=== PATIENT | female | born 1980 | race Two or more races ===

== ENCOUNTER 2017-03-10 02:41 | Emergency (ER) | payer BC, MEDICAID ==
[2017-03-10 03:24] LABS: % BASOPHILS 2.9 % (0.0-2.0); % EOSINOPHILS 2.3 % (0.0-5.0); % LYMPHOCYTES 35.1 % (20.0-50.0); % MONOCYTES 2.9 % (2.0-10.0); % NEUTROPHILS 56.8 % (40.0-80.0); HEMATOCRIT 40.7 % (41.0-60); HEMOGLOBIN 13.9 gm/dL (12-16); MEAN CELL VOLUME 93.4 fl (81-100); MEAN CORPUSCULAR HEMOGLOBIN 31.8 pg (27.0-31.0); MEAN PLATELET VOLUME 8.6 fl; NEUTROPHILE ABSOLUTE 6.9 Th/cmm (1.8-8.0); PLATELET COUNT 284 Th/cmm (150-400); RED BLOOD COUNT 4.36 Mil/cmm (3.80-5.10)
[2017-03-10 03:24] LABS: URINE BILIRUBIN NEGATIVE (NEGATIVE); URINE BLOOD SMALL (NEGATIVE); URINE GLUCOSE (UA) NEGATIVE (NEGATIVE); URINE KETONE NEGATIVE (NEGATIVE); URINE PROTEIN NEGATIVE (NEGATIVE); URINE UROBILINOGEN 0.2 E.U./dL (0.2 - 1.0)
[2017-03-10 03:26] LABS: URINE BACTERIA FEW /hpf (NONE SEEN); URINE COLOR YELLOW; URINE EPITHELIAL CELLS FEW /lpf (FEW); URINE RBC 0-2 /hpf (0-5); URINE WBC 0-2 /hpf (0-5)
[2017-03-10 03:28] LABS: WHITE BLOOD COUNT 12.4 Th/cmm (4.8-10.8)
[2017-03-10 03:34] LABS: AMYLASE SERUM 24 U/L (29-103); LIPASE 46 U/L (11-82)
[2017-03-10 03:35] LABS: ANION GAP 8.2 (7.0-16.0); BUN - UREA NITROGEN 15 mg/dL (7-25); BUN/CREATININE RATIO 18.8; CALCIUM SERUM 8.8 mg/dL (8.6-10.3); CARBON DIOXIDE 24.4 mEq/L (21.0-31.0); CHLORIDE 105 mEq/L (98-107); CREATININE - SERUM 0.8 mg/dL (0.6-1.2); GLUCOSE 104 mg/dL (70-105); POTASSIUM SERUM 3.6 mEq/L (3.5-5.1); SODIUM SERUM 134 mEq/L (136-145)
[2017-03-10] MEDS ORDERED: Piperacillin Sodium/Tazobact 3.375 gm Vial IV ONE (03:59)
--- NOTE | 2017-03-10 08:04 | Diagnostic Imaging Report ---
Portable chest x-ray Time: 0 348 History: Pain Allowing for portable technique the heart size is normal. No focal pulmonary parenchymal processes. No hilar or mediastinal abnormalities. Impression: No acute abnormalities.
--- NOTE | 2017-03-12 14:44 | ER Physician Documentation ---
DATE OF SERVICE: 03/10/2017 PATIENT IDENTIFICATION: A 36-year-old female patient, date of 1980, full code patient. No allergies. Body surface area is 1.91 square meter, height is 1.65 meters, weight 83.91 kilograms. CHIEF COMPLAINT: The patient came to the Emergency Room complaining of pain around 11 o'clock on 03/09/2017 and the pain radiated to the back and this is the first time she gets that pain and in the past also she had once the similar kind of pain and she had some nausea sensation, she took 4 tablets of Advil. She smokes 5 cigarettes a day. She denies drinking any alcoholic substances. She denies any apparent liver disease or apparent gallbladder disease. The patient has no history of any jaundice, had 2 bowel movements today. She ate some different kind of food around 11 o' clock which she had eaten in the past also. HISTORY OF PRESENT ILLNESS: The patient apparently had the same upper findings or the history that I outlined to you and the patient had no lung, liver or gallbladder disease. The patient denies any pancreatitis in the past. Denies any history of drinking alcohol in the past. PAST MEDICAL HISTORY: Essentially benign and negative. PERSONAL HISTORY: She is , has 3 children. She does not work. FAMILY HISTORY: Benign and negative. REVIEW OF SYSTEMS: Essentially has no history of pneumonia, TB, pulmonary embolism, COPD, emphysema, bronchitis. Cardiac agudelo; no history of any chest pain. No history of any rheumatic fever, valvular heart disease, pericarditis. No history of any palpitations. Central nervous system agudelo; no history of TIA, stroke, encephalitis, meningitis ____ no apparent complaints. Gastrointestinal agudelo; the patient has epigastric discomfort for which she took 8 ibuprofen tablets and I am not sure whether the patient has been taking ibuprofen; most likely in the past that she had so many ibuprofen and along with that perhaps she may have ingested alcohol in the past with high doses of cigarette smoking, can contribute to this kind of pain along with pancreatitis need to be ruled out. Gallbladder is another possibility that the patient can have cholecystitis pain, but later this was to rule out pancreatitis, then we will get gallbladder scan to see if there is any gallbladder disease present in the patient. Endocrine agudelo; no diabetes mellitus, no alcohol ____; bones and joints, no apparent complaints. Genitourinary; no burning, frequency, dysuria. Urine is essentially clear. Urine examination was done rightfully, ____ earlier it was found to be within normal limits. PHYSICAL EXAMINATION: GENERAL: The patient appears to be awake, alert, oriented, not in any acute cardiorespiratory distress. VITAL SIGNS: Showed that the temperature was 98.1, when she came here temperature was 98.6, oral temperature; pulse of 76; blood pressure 120/85; respiratory rate of 16; oxygen saturation 100%, and pain level scale was 8. CHEST: Reveals trachea to be central. Fairly good air entry in both lungs without any rales, rhonchi, or ____ breathing. ABDOMEN: Soft. Epigastric tenderness is noted with minimal radiation into the posterior area. No evidence of any definite Marshall sign present, but there is definite tenderness also noted in the right upper quadrant area suggesting the possibility of gallbladder disease could be present in her. White count is slightly elevated ____ suggesting that there might be some occult infection either in the form of pancreatitis or cholecystitis or probability that should be kept in mind. No history of ascites is present, no history of any portal hypertension. Liver and spleen not enlarged. No free fluid in the abdominal cavity. ____ systems within normal limits. EKG is within normal limits. CLINICAL IMPRESSION: The patient presented with abdominal pain of 3 hours' duration associated with two large bowel movements and followed by taking 800 mg of ibuprofen tablets. The differential diagnoses as follows: 1. Pancreatitis. 2. Possibility of gallbladder disease, acute cholecystitis pain is a possibility. The other is whether the patient has been heavily smoking, alcohol ingestion in the past and having some gastroesophageal reflux and gastritis, ____ is possible food poisoning. She is taking some different kind of [place] food today around 11 o'clock giving isolated diarrhea and some nauseous sensation. ____ comes out to be normal, then we will get ultrasound of the gallbladder to be done to see if there is anything present in the gallbladder. In the meantime, we will give the patient some Protonix injection to be given to the patient; hydration will be given to the patient and some mild Tylenol at the present moment ____ care of treatment will be given to the patient. The urine is essentially clear, platelet count is normal, white count is normal, hemoglobin and hematocrit are normal. test is negative. Electrolytes are being with the present moment. Further dictation of lab results and our treatment profile will be given to the patient. Since the patient has abdominal pain, we will give one shot of antibiotic also to cover for if there is any gallbladder infection, Zosyn would be the best to give at the present moment. Under the current circumstances, showed gallbladder be a pathology. We will start the treatment at the present moment. If there is any food poisoning, it should go away by itself. EKG is within normal limits as I mentioned earlier. JOB# [id number]
--- NOTE | 2017-03-12 14:44 | ER Physician Documentation ---
DATE OF SERVICE: ADDENDUM LABORATORY DATA: Showed white count to be slightly elevated 12.4 and electrolytes came back showing sodium to be 134, potassium 3.6, chloride 105, BUN is ____, creatinine is ____, calcium is 8.8 within normal limits. Amylase is 24 and lipase is 66, all within normal level. Lactic acid is within normal limits. The patient's troponin is within normal limits, ____ cardiac agudelo the patient has any problem. CLINICAL IMPRESSION: The patient most probably had either acute gastritis or either food poisoning giving rise to nausea sensation and two episodes of bowel movements, in light of that one antibiotic Zosyn has been given to the patient and most likely this is a viral illness, norovirus or other virus and this should go away by itself and the patient may also be having gastritis, gastroesophageal reflux disease type symptoms. Protonix has been given to take one a day. The patient's diarrhea and things should get controlled by itself. She should not eat too much for a few days ____ get back to normal. She has been given, at the present moment, Protonix, sucralfate and ____. All other cultures are negative. Chest x-ray has been ordered, but I do not expect anything wrong to help in to that. The patient should follow up with her physician to see if the patient has any gallbladder disease, so the patient might need a gallbladder study to be done as an outpatient. If the patient develops or food poisoning symptoms continue, then her physician can order the patient some antibiotic coverage in the form of ____ in the Septra-DS 1 twice a day or if it is significant enough then one can need Flagyl 500 three times a day along with some Cipro 500 twice a day for 5 days and that should cover the symptoms, but most likely this should wear off within 24-48 hours with the use of Protonix, but Protonix should be continued for about a month or so and smoking should be discontinued by the patient and followup of the patient should be done by her physician. JOB# [id number]
== END 2017-03-10 04:27 | disposition home or self-care (01) ==
LOC: ER 02:41
DX: K29.00 Acute gastritis without bleeding (principal)
CPT/HCPCS: 99285; 96365; 96375; 93005; 71010; 84484; 36415; 83605; 85025; 81001; 82150; 81025; 83690; 80048; 87040; C9113; J2543

== ENCOUNTER 2017-10-22 23:28 | Emergency (ER) | payer MEDICAID ==
[2017-10-23] MEDS ORDERED: Bacitracin pkt 1 gm Pkt TP ONE (00:17)
[2017-10-23] MEDS ORDERED: Bacitracin pkt 1 gm Pkt TP STA (00:23)
--- NOTE | 2017-10-23 00:24 | ED Physician Chart ---
ED Chief Complaint/HPI - Patient Information Date Seen:: 10/23/17 Time Seen:: 00:01 Chief Complaint:: Left hand laceration History of Present Illness:: 36 yo female had a left hand laceration when she was washing dishes 2 hours ago. There was small amount of bleeding before it stopped by pressure compressing. Allergies:: Allergies Allergy/AdvReac Type Severity Reaction Status Date / Time No Known Allergies Allergy Verified 10/22/17 23:38 Vitals:: Vital Signs - 8 hr 10/22/17 23:30 Temp 97.3 F HR 74 RR 18 BP 125/80 O2 Sat % 99 ED Review of Systems - Review of Systems General/Constitutional: No fever Skin: Skin lesions Head: No headache Eyes: No pain ENT: No nasal drainage Neck: No neck pain Cardio Vascular: No chest pain Pulmonary: No SOB GI: No nausea, No vomiting Musculoskeletal: No bone or joint pain Neurological: No focal symptoms ED Past Medical History - Past Medical History Past Medical History: No significant medical hx Social History: Non Smoker, No Alcohol, No Drug Use Surgical History: None Family Medical History - Family Member Mother History Unknown: Yes Ethnicity: Living Status: Still Living Hx Family Diabetes: Yes ED Physical Exam - Physical Examination General/Constitutional: Awake Head: Atraumatic Eyes: PERRL Other Skin comments:: "L" shape laceration 2cm, 1cm and 0.3cm deep on the left 5th finger, lateral to the MCP joint. ENMT: Nasal exam nl Neck: No nuchal rigidity Respiratory: No Wheeze/Rhonchi/Rales Cardio Vascular: RRR, No murmur, gallop, rubs, NL S1 S2 GI: No tenderness/rebounding/guarding Extremities: normal strength in all extremities Neuro/Psych: No focal deficits ED Assessment - Assessment General Assessment: Left hand laceration Assessment/Comments:: Laceration repair Tdap Keflex 500mg PO D/c home F/u PCP for suture removal in 7-10 days Location:: Left 5th finger, lateral to MCP joint Laceration Type:: Simple Wound Length: 3 cm Prep/Irrigation:: NS, hydrogen peroxide, betadine Comments: 1% lidocaine was used to achieve local anesthesia. Subsequently, two horizontal mattress sutures and one simple interrupted suture was placed with 4.0 Prolene. Bacitracin was topically applied ED Septic Shock - . Is Septic Shock (SBP<90, OR Lactate>4 mmol\\L) present?: No - <6hrs of presentation: Vital Signs: Vital Signs - 8 hr 10/22/17 23:30 Temp 97.3 F HR 74 RR 18 BP 125/80 O2 Sat % 99 ED Reassessment (Disposition) - Reassessment Reassessment Condition:: Improved - Patient Disposition Discharge/Transfer:: Home ED Discharge Plan - Patient Disposition Admit/Discharge/Transfer: PT DISCHARGED HOME Condition at Disposition: Improved Instructions: Laceration Care, Adult
== END 2017-10-23 00:35 | disposition home or self-care (01) ==
LOC: ER 23:28
DX: S61.412A Laceration without foreign body of left hand, initial encounter (principal); X58.XXXA Exposure to other specified factors, initial encounter; Y93.89 Activity, other specified; Y92.89 Other specified places as the place of occurrence of the external cause; Y99.8 Other external cause status
CPT/HCPCS: 12002; Z7502; Z7610

== ENCOUNTER 2017-12-15 20:03 | Emergency (ER) | payer MEDICAID ==
[2017-12-15 21:06] LABS: % BASOPHILS 0.8 % (0.0-2.0); % EOSINOPHILS 1.4 % (0.0-5.0); % LYMPHOCYTES 33.6 % (20.0-50.0); % MONOCYTES 3.5 % (2.0-10.0); % NEUTROPHILS 60.7 % (40.0-80.0); BASOPHILE ABSOLUTE 0.1 Th/cumm (0-0.2); EOSINOPHILE ABSOLUTE 0.1 Th/cmm (0.1-0.4); HEMATOCRIT 41.8 % (41.0-60); HEMOGLOBIN 14.1 gm/dL (12-16); LYMPHOCYTE ABSOLUTE 3.2 Th/cmm (1.5-3.0); MEAN CELL VOLUME 93.4 fl (81-100); MEAN CORPUSCULAR HEMOGLOBIN 31.4 pg (27.0-31.0); MEAN CORPUSCULAR HGB CONC 33.6 pg (28.0-36.0); MEAN PLATELET VOLUME 7.9 fl; MONOCYTE ABSOLUTE 0.3 Th/cmm (0.3-1.0); NEUTROPHILE ABSOLUTE 5.8 Th/cmm (1.8-8.0); PLATELET COUNT 293 Th/cmm (150-400); RED BLOOD COUNT 4.47 Mil/cmm (3.80-5.10); RED CELL DISTRIBUTION WIDTH 12.1 % (11.5-20.0); WHITE BLOOD COUNT 9.5 Th/cmm (4.8-10.8)
[2017-12-15 21:06] LABS: URINE MICROSCOPIC INDICATED? YES; URINE SOURCE CLEAN C
[2017-12-15 21:10] LABS: URINE BILIRUBIN NEGATIVE (NEGATIVE); URINE BLOOD NEGATIVE (NEGATIVE); URINE GLUCOSE (UA) NEGATIVE (NEGATIVE); URINE KETONE NEGATIVE (NEGATIVE); URINE LEUKOCYTE ESTERASE NEGATIVE (NEGATIVE); URINE NITRATE NEGATIVE (NEGATIVE); URINE PH 8.5 (4.6 - 8.0); URINE PROTEIN TRACE mg/dL (NEGATIVE); URINE UROBILINOGEN 0.2 E.U./dL (0.2 - 1.0)
--- NOTE | 2017-12-15 21:10 | ED Physician Chart ---
ED Chief Complaint/HPI - Patient Information Date Seen:: 12/15/17 Time Seen:: 20:20 Chief Complaint:: NUMBNESS ARMS FEET History of Present Illness:: 37 YR OLD FEMALE WITH HX OF CHILDHOOD POLIO WITH PROBLEMS LT FOOT DROP DECRESED MOVEMENT RT SHOULDER WITH SOME NUMBNESS FEET ARMS NO FEVER OR COUGH NO HEADACHE OR DIZZINESS Allergies:: Allergies Allergy/AdvReac Type Severity Reaction Status Date / Time No Known Allergies Allergy Verified 10/22/17 23:38 Vitals:: Vital Signs - 8 hr 12/15/17 20:20 Temp 98.6 F HR 82 RR 18 O2 Sat % 99 ED Review of Systems - Review of Systems General/Constitutional: No fever, No chills, No weight loss, No weakness, No diaphoresis, No edema, No loss of appetite Skin: No skin lesions, No rash, No bruising Head: No headache, No light-headedness Eyes: No loss of vision, No pain, No diplopia ENT: No earache, No nasal drainage, No sore throat, No tinnitus Neck: No neck pain, No swelling, No thyromegaly, No stiffness, No mass noted Cardio Vascular: No chest pain, No palpitations, No PND, No orthopnea, No edema Pulmonary: No SOB, No cough, No sputum, No wheezing GI: No nausea, No vomiting, No diarrhea, No pain, No melena, No hematochezia, No constipation, No hematemesis G/U: No dysuria, No frequency, No hematuria Musculoskeletal: Muscle pain, Other (POLIO WEAKNESS) Endocrine: No polyuria, No polydipsia Psychiatric: No prior psych history, No depression, No anxiety, No suicidal ideation Hematopoietic: No bruising, No lymphadenopathy Allergic/Immuno: No urticaria, No angioedema Neurological: No syncope, No focal symptoms, No weakness, No paresthesia, No headache, No seizure, No dizziness, No confusion, No vertigo ED Past Medical History - Past Medical History Past Medical History: Other (CHILDHOOD POLIO) Family Medical History - Family Member Mother History Unknown: Yes Ethnicity: Living Status: Still Living Hx Family Diabetes: Yes ED Assessment - Assessment General Assessment: WEAKNESS NUMBNESS HX POLIO ED Septic Shock - . Is Septic Shock (SBP<90, OR Lactate>4 mmol\L) present?: No - <6hrs of presentation: Vital Signs: Vital Signs - 8 hr 12/15/17 20:20 Temp 98.6 F HR 82 RR 18 O2 Sat % 99 ED Reassessment (Disposition) - Reassessment Reassessment Condition:: Unchanged - Diagnosis Diagnosis:: WEAKNESS NUMBNESS CHILDHOOD POLIO - Patient Disposition Discharge/Transfer:: Home Condition at Disposition:: Stable
[2017-12-15 21:13] LABS: URINE CLARITY CLEAR (CLEAR); URINE COLOR YELLOW
[2017-12-15 21:15] LABS: URINE BACTERIA FEW /hpf (NONE SEEN); URINE EPITHELIAL CELLS MODERATE /lpf (FEW); URINE WBC 0-2 /hpf (0-5)
[2017-12-15 21:24] LABS: ALB/GLOB RATIO 1.7 (1.0-1.8); ALBUMIN 4.3 gm/dL (3.7-5.3); ALKALINE PHOSPHATASE 46 U/L (34-104); ANION GAP 10.8 (7.0-16.0); BILIRUBIN,TOTAL 0.3 mg/dL (0.3-1.0); BUN - UREA NITROGEN 10 mg/dL (7-25); CALCIUM SERUM 9.2 mg/dL (8.6-10.3); CARBON DIOXIDE 24.7 mEq/L (21.0-31.0); CHLORIDE 107 mEq/L (98-107); CREATININE - SERUM 0.6 mg/dL (0.6-1.2); GFR AFRICAN-AMERICAN > 60.0 ml/min (>90); GFR NON AFRICAN-AMERICAN > 60.0 ml/min; GLUCOSE 92 mg/dL (70-105); POTASSIUM SERUM 3.5 mEq/L (3.5-5.1); SGOT 15 U/L (13-39); SGPT/ALT 19 U/L (7-52); SODIUM SERUM 139 mEq/L (136-145); TOTAL PROTEIN,SERUM 6.8 gm/dL (6.0-8.3)
--- NOTE | 2017-12-16 09:03 | Diagnostic Imaging Report ---
Chest x-ray single view History: Shortness of breath The heart size is normal. No focal pulmonary parenchymal processes. No hilar or mediastinal abnormalities. Impression: No acute abnormalities
== END 2017-12-15 21:20 | disposition home or self-care (01) ==
LOC: ER 20:03
DX: R20.0 Anesthesia of skin (principal); R53.1 Weakness; Z86.12 Personal history of poliomyelitis
CPT/HCPCS: 36415-UA; 71045-TC; 80053-TC; 81001-TC; 85025-TC

== ENCOUNTER 2018-04-16 00:17 | Emergency (ER) | payer MEDICAID ==
[2018-04-16] MEDS ORDERED: Pantoprazole 40 mg EC Tab PO ONE (00:40)
[2018-04-16 01:00] LABS: URINE SOURCE MIDSTREAM
[2018-04-16 01:04] LABS: URINE BILIRUBIN NEGATIVE (NEGATIVE); URINE BLOOD MODERATE (NEGATIVE); URINE GLUCOSE (UA) NEGATIVE (NEGATIVE); URINE KETONE NEGATIVE (NEGATIVE); URINE LEUKOCYTE ESTERASE NEGATIVE (NEGATIVE); URINE MICROSCOPIC INDICATED? YES; URINE NITRATE NEGATIVE (NEGATIVE); URINE PROTEIN NEGATIVE (NEGATIVE); URINE UROBILINOGEN 0.2 E.U./dL (0.2 - 1.0)
[2018-04-16 01:06] LABS: % BASOPHILS 0.4 % (0.0-2.0); % EOSINOPHILS 2.4 % (0.0-5.0); % LYMPHOCYTES 29.5 % (20.0-50.0); % MONOCYTES 4.6 % (2.0-10.0); % NEUTROPHILS 63.1 % (40.0-80.0); BASOPHILE ABSOLUTE 0.1 Th/cumm (0-0.2); EOSINOPHILE ABSOLUTE 0.3 Th/cmm (0.1-0.4); HEMATOCRIT 38.9 % (41.0-60); HEMOGLOBIN 13.2 gm/dL (12-16); LYMPHOCYTE ABSOLUTE 3.8 Th/cmm (1.5-3.0); MEAN CELL VOLUME 92.9 fl (81-100); MEAN CORPUSCULAR HEMOGLOBIN 31.4 pg (27.0-31.0); MEAN CORPUSCULAR HGB CONC 33.8 pg (28.0-36.0); MONOCYTE ABSOLUTE 0.6 Th/cmm (0.3-1.0); PLATELET COUNT 329 Th/cmm (150-400); RED BLOOD COUNT 4.19 Mil/cmm (3.80-5.10); RED CELL DISTRIBUTION WIDTH 12.2 % (11.5-20.0); WHITE BLOOD COUNT 12.8 Th/cmm (4.8-10.8)
[2018-04-16 01:09] LABS: URINE CLARITY CLEAR (CLEAR); URINE COLOR YELLOW
[2018-04-16 01:15] LABS: ALB/GLOB RATIO 1.5 (1.0-1.8); ALBUMIN 3.9 gm/dL (3.7-5.3); ALKALINE PHOSPHATASE 59 U/L (34-104); ANION GAP 11.5 (7.0-16.0); BILIRUBIN,TOTAL 0.2 mg/dL (0.3-1.0); BUN - UREA NITROGEN 16 mg/dL (7-25); CARBON DIOXIDE 22.4 mEq/L (21.0-31.0); CHLORIDE 106 mEq/L (98-107); CREATININE - SERUM 0.7 mg/dL (0.6-1.2); GFR AFRICAN-AMERICAN > 60.0 ml/min (>90); GFR NON AFRICAN-AMERICAN > 60.0 ml/min; GLUCOSE 134 mg/dL (70-105); LIPASE 30 U/L (11-82); POTASSIUM SERUM 3.9 mEq/L (3.5-5.1); SGOT 17 U/L (13-39); SGPT/ALT 21 U/L (7-52); SODIUM SERUM 136 mEq/L (136-145); TOTAL PROTEIN,SERUM 6.5 gm/dL (6.0-8.3)
[2018-04-16 01:16] LABS: URINE BACTERIA FEW /hpf (NONE SEEN); URINE EPITHELIAL CELLS FEW /lpf (FEW); URINE RBC 0-2 /hpf (0-5); URINE WBC 0-2 /hpf (0-5)
[2018-04-16 01:28] LABS: INR 0.87 (0.5-1.4); PROTHROMBIN TIME (TEST) 9.2 SECONDS (9.5-11.5)
[2018-04-16] MEDS ORDERED: Morphine Sulfate 2 mg/mL 1mL Syr ONE (01:49)
[2018-04-16] MEDS ORDERED: Piperacillin Sodium/Tazobact 3.375 gm Vial IV ONE (02:16)
--- NOTE | 2018-04-16 04:58 | ED Physician Chart ---
ED Chief Complaint/HPI - Patient Information Date Seen:: 04/16/18 Time Seen:: 04:58 Chief Complaint:: Abdominal pain History of Present Illness:: 37 yo female began to have epigastric pain radiating to the back about 3 hours prior. Patient denied nausea or vomiting. Patient denied history of gallstone or kidney stone. Allergies:: Allergies Allergy/AdvReac Type Severity Reaction Status Date / Time No Known Allergies Allergy Verified 10/22/17 23:38 Vitals:: Vital Signs - 8 hr 04/16/18 04/16/18 04/16/18 00:18 01:56 02:46 Temp 97.5 F HR 77 65 65 RR 18 18 16 BP 151/89 118/70 117/66 O2 Sat % 98 98 100 ED Review of Systems - Review of Systems General/Constitutional: No fever Skin: No rash Head: No headache Eyes: No pain ENT: No nasal drainage Neck: No neck pain Cardio Vascular: No chest pain Pulmonary: No SOB GI: No nausea, No vomiting, Pain Musculoskeletal: No bone or joint pain Psychiatric: No prior psych history Neurological: No focal symptoms ED Past Medical History - Past Medical History Past Medical History: No significant medical hx Social History: Smoker, No Alcohol, No Drug Use Surgical History: Family Medical History - Family Member Mother History Unknown: Yes Ethnicity: Living Status: Still Living Hx Family Diabetes: Yes ED Physical Exam - Physical Examination General/Constitutional: Awake, Alert Head: Atraumatic Eyes: PERRL Skin: No skin lesions ENMT: Nasal exam nl Neck: No nuchal rigidity Respiratory: No Wheeze/Rhonchi/Rales Cardio Vascular: RRR, No murmur, gallop, rubs, NL S1 S2 Other GI comments:: Epigastric tenderness Extremities: normal strength in all extremities Neuro/Psych: Normal sensory exam ED Labs/Radiology/EKG Results - Lab Results Results: Laboratory Tests 04/16/18 04/16/18 04/16/18 00:40 00:40 00:45 WBC 12.8 H RBC 4.19 Hgb 13.2 Hct 38.9 L MCV 92.9 MCH 31.4 H MCHC Differential 33.8 RDW 12.2 Plt Count 329 MPV 8.0 Neutrophils % 63.1 Lymphocytes % 29.5 Monocytes % 4.6 Eosinophils % 2.4 Basophils % 0.4 PT INR PTT (Actin FS) Sodium Potassium Chloride Carbon Dioxide Anion Gap BUN Creatinine Est GFR ( Amer) Est GFR (Non-Af Amer) BUN/Creatinine Ratio Glucose Calcium Total Bilirubin AST ALT Alkaline Phosphatase Total Protein Albumin Globulin Albumin/Globulin Ratio Lipase Urine Source MID[place] Urine Color YELLOW Urine Clarity CLEAR Urine pH 6.0 Ur Specific [place] 1.025 Urine Protein NEGATIVE Urine Glucose (UA) NEGATIVE Urine Ketones NEGATIVE Urine Blood MODERATE H Urine Nitrate NEGATIVE Urine Bilirubin NEGATIVE Urine Urobilinogen 0.2 Ur Leukocyte Esterase NEGATIVE Urine RBC 0-2 Urine WBC 0-2 Ur Epithelial Cells FEW Urine Bacteria FEW Urine Test NEGATIVE 04/16/18 04/16/18 00:45 00:45 WBC RBC Hgb Hct MCV MCH MCHC Differential RDW Plt Count MPV Neutrophils % Lymphocytes % Monocytes % Eosinophils % Basophils % PT 9.2 L INR 0.87 PTT (Actin FS) 26.1 Sodium 136 Potassium 3.9 Chloride 106 Carbon Dioxide 22.4 Anion Gap 11.5 BUN 16 Creatinine 0.7 Est GFR ( Amer) > 60.0 Est GFR (Non-Af Amer) > 60.0 BUN/Creatinine Ratio 22.9 Glucose 134 H Calcium 9.0 Total Bilirubin 0.2 L AST 17 ALT 21 Alkaline Phosphatase 59 Total Protein 6.5 Albumin 3.9 Globulin 2.6 Albumin/Globulin Ratio 1.5 Lipase 30 Urine Source Urine Color Urine Clarity Urine pH Ur Specific [place] Urine Protein Urine Glucose (UA) Urine Ketones Urine Blood Urine Nitrate Urine Bilirubin Urine Urobilinogen Ur Leukocyte Esterase Urine RBC Urine WBC Ur Epithelial Cells Urine Bacteria Urine Test - Radiology Results Results: CT Abdomen/Pelvis: gallstones without CT evidence of acute cholecystitis, tiny fat-containing focal hernia. ED Assessment - Assessment General Assessment: Abdominal pain Gastroenteritis Leukocytosis Dehydration Assessment/Comments:: CBC, CMP, lipase, ua, urine hCG Zosyn 3.375mg IV NS 1L IV Pantoprazole 40mg IV Morphine 1mg IV D/c home F/u PCP or return to ER if symptoms worsen Ciprofloxacin 500mg PO bid x 7 days ED Septic Shock - . Is Septic Shock (SBP<90, OR Lactate>4 mmol\L) present?: No - <6hrs of presentation: Vital Signs: Vital Signs - 8 hr 04/16/18 04/16/18 04/16/18 00:18 01:56 02:46 Temp 97.5 F HR 77 65 65 RR 18 18 16 BP 151/89 118/70 117/66 O2 Sat % 98 98 100 ED Reassessment (Disposition) - Reassessment Reassessment Condition:: Improved - Aftercare/Follow up Instructions Medication Prescribed:: Ciprofloxacin 500mg po bid x 7 days - Patient Disposition Discharge/Transfer:: Home
[2018-04-16] MEDS ORDERED: Morphine Sulfate 2 mg/mL 1mL Syr IV STA (05:00)
[2018-04-16] MEDS ORDERED: Sodium Chloride 0.9% 1,000 ML IV ONE (05:00)
--- NOTE | 2018-04-16 09:37 | Diagnostic Imaging Report ---
CT abdomen and pelvis without intravenous contrast Indication: Abdominal pain Comparison: None, Technique: Axial images were obtained from the lung bases to the bilateral proximal femurs without IV contrast. Coronal reconstructions were made. total DLP: 635, CTDI12.9 FINDINGS: Hypoventilatory and atelectatic changes of the lung bases are noted. Assessment of the solid organs is limited due to lack of IV contrast. No evidence of focal hepatic lesions. Gallstones are noted including large gallstone measuring 2.5 cm along the gallbladder neck. No surrounding inflammatory changes. No focal splenic or hepatic lesions. No focal adrenal images. No evidence of hydronephrosis or nephrolithiasis. Minimal diverticulosis is noted without diverticulitis. No appendicitis. High density of the stomach is noted. Distended stomach is noted with food contents. No free fluid or free abdominal air. Degenerative changes of the spine are noted. IMPRESSION: Cholelithiasis. No evidence of surrounding inflammatory changes. Consider further assessment with ultrasound. Distended fluid-filled stomach with high density which may be due to ingested material. Minimal diverticulosis without evidence of diverticulitis. No evidence of appendicitis.
== END 2018-04-16 05:25 | disposition home or self-care (01) ==
LOC: ER 00:17
DX: K52.9 Noninfective gastroenteritis and colitis, unspecified (principal); E86.0 Dehydration; D72.829 Elevated white blood cell count, unspecified; F17.200 Nicotine dependence, unspecified, uncomplicated; Z98.890 Other specified postprocedural states
CPT/HCPCS: 99284; 96365; 96375; 74176; 36415; 85025; 85610; 87086; 81001; 81025; 83690; 80053; C9113; J2270; J2543; J7030; Z7502; Z7610

== ENCOUNTER 2018-07-07 16:22 | Emergency (ER) | payer MEDICAID ==
--- NOTE | 2018-07-07 18:29 | ED Physician Chart ---
ED Chief Complaint/HPI - Patient Information Date Seen:: 07/07/18 Time Seen:: 16:29 Chief Complaint:: sore throat History of Present Illness:: pt has sorethroat x 1 day,fever, radiating to left ear and headache Allergies:: Allergies Allergy/AdvReac Type Severity Reaction Status Date / Time No Known Allergies Allergy Verified 07/07/18 16:54 Vitals:: Vital Signs - 8 hr 07/07/18 16:29 Temp 98.5 F HR 105 RR 18 BP 130/66 O2 Sat % 97 Historian:: Patient Review:: Nurse's Note Reviewed ED Review of Systems - Review of Systems General/Constitutional: No fever, No chills, No weight loss, No weakness, No diaphoresis, No edema, No loss of appetite Skin: No skin lesions, No rash, No bruising Head: No headache, No light-headedness Eyes: No loss of vision, No pain, No diplopia ENT: No earache, No nasal drainage, Sore throat, No tinnitus Neck: No neck pain, No swelling, No thyromegaly, No stiffness, No mass noted Cardio Vascular: No chest pain, No palpitations, No PND, No orthopnea, No edema Pulmonary: No SOB, No cough, No sputum, No wheezing GI: No nausea, No vomiting, No diarrhea, No pain, No melena, No hematochezia, No constipation, No hematemesis G/U: No dysuria, No frequency, No hematuria Musculoskeletal: No bone or joint pain, No back pain, No muscle pain Endocrine: No polyuria, No polydipsia Psychiatric: No prior psych history, No depression, No anxiety, No suicidal ideation Hematopoietic: No bruising, No lymphadenopathy Allergic/Immuno: No urticaria, No angioedema Neurological: No syncope, No focal symptoms, No weakness, No paresthesia, No headache, No seizure, No dizziness, No confusion, No vertigo ED Past Medical History - Past Medical History Obtainable: Yes Past Medical History: No significant medical hx Family Medical History - Family Member Mother History Unknown: Yes Ethnicity: Living Status: Still Living Hx Family Diabetes: Yes ED Physical Exam - Physical Examination General/Constitutional: Awake, Well-developed, well-nourished, Alert, No distress, GCS 15, Non-toxic appearing, Ambulatory Head: Atraumatic Eyes: Lids, conjuctiva normal, PERRL, EOMI Skin: Nl inspection, No rash, No skin lesions, No ecchymosis, Well hydrated, No lymphadenopathy ENMT: External ears, nose nl, Nasal exam nl, Lips, teeth, gums nl Other ENMT comments:: tonsils are enlarged (airway patent) with exudate Neck: Nontender, No nuchal rigidity, No stridor Respiratory: Nl effort/Exclusion, Clear to Auscultation, No Wheeze/Rhonchi/Rales Cardio Vascular: RRR, No murmur, gallop, rubs, NL S1 S2 GI: No tenderness/rebounding/guarding, No organomegaly, No hernia, Normal BS's, Nondistended, No mass/bruits, No McBurney tenderness : No CVA tenderness Extremities: No tenderness or effusion, Full ROM, normal strength in all extremities, No edema, Normal digits & nails Neuro/Psych: Alert/oriented, Normal sensory exam, Normal motor strength, Judgement/insight normal, Mood normal, Normal gait, No focal deficits Misc: Normal back, No paraspinal tenderness ED Septic Shock - . Is Septic Shock (SBP<90, OR Lactate>4 mmol\L) present?: No - <6hrs of presentation: Vital Signs: Vital Signs - 8 hr 07/07/18 16:29 Temp 98.5 F HR 105 RR 18 BP 130/66 O2 Sat % 97 ED Reassessment (Disposition) - Reassessment Reassessment Condition:: Improved - Diagnosis Diagnosis:: Strep throat by exam. - Aftercare/Follow up Instructions Aftercare/Follow-Up Instructions:: Refer to Discharge Instructions Medication Prescribed:: Penicillin and medrol dose pack - Patient Disposition Discharge/Transfer:: Home Condition at Disposition:: Stable, Improved
== END 2018-07-07 19:15 | disposition home or self-care (01) ==
LOC: ER 16:22
DX: J02.9 Acute pharyngitis, unspecified (principal)
CPT/HCPCS: 99283; 96372 ×3; J1885; J0696; J2930; Z7502